=== PATIENT | female | born 1975 | race Caucasian/White ===

== ENCOUNTER 2024-03-25 21:20 | Observation (INO) ==
[2024-03-25 21:45] LABS: ABS Basophils 0.1 10^3/uL (0.0-0.1); ABS Eosinophils 0.1 10^3/uL (0.0-0.5); ABS Monocytes 0.5 10^3/uL (0.0-0.9); ABS Neutrophils 3.9 10^3/uL (1.5-7.6); ABS Nucleated RBC 0.01 10^3/ul; Hematocrit 42.6 % (35-45); Hemoglobin 14.3 g/dL (11.5-14.3); Lymphocyte % 29.8 %; Mean Corpuscular Hemoglobin 31.2 pg (27-33); Mean Corpuscular Hgb Conc 33.6 g/dL (31-36); Mean Corpuscular Volume 92.8 fL (80-97); Mean Platelet Volume 8.9 fL (7.5-11.2); Nucleated Red Blood Cells % 0.1 %/100WBC (0.0-0.8); Platelet Count 264 10^3/uL (150-450); Red Blood Count 4.59 10^6/uL (3.63-4.92); Red Cell Distribution Width 14.5 % (12-17); White Blood Count 6.6 10^3/uL (3.8-11.8)
[2024-03-25 22:27] LABS: INR 0.96 (0.85-1.14)
[2024-03-25 23:27] LABS: Creatinine, Serum 1.02 mg/dL (0.51-0.95); Potassium 4.2 mmol/L (3.5-5.0); eGFR CKD-EPI 68.7 (>60)
[2024-03-25 23:27] LABS: High Sensitivity Troponin 1 Hr 6 pg/mL (<15)
[2024-03-25 23:28] LABS: Albumin 4.1 g/dL (3.2-5.2); Albumin/Globulin Ratio 1.4 (1-3); Total Bilirubin 0.8 mg/dL (0.2-1.0); Total Protein 7.1 g/dL (6.4-8.9)
[2024-03-26] MEDS ORDERED: Nitroglycerin 0.3 mg TAB SL PRN (06:39)
[2024-03-26 07:17] LABS: ABS Basophils 0.1 10^3/uL (0.0-0.1); ABS Eosinophils 0.1 10^3/uL (0.0-0.5); ABS Lymphocytes 1.9 10^3/uL (1.0-4.8); ABS Monocytes 0.5 10^3/uL (0.0-0.9); ABS Neutrophils 3.2 10^3/uL (1.5-7.6); Eosinophil % 2.2 %; Hematocrit 39.4 % (35-45); Hemoglobin 13.2 g/dL (11.5-14.3); Lymphocyte % 33.4 %; Mean Corpuscular Hgb Conc 33.6 g/dL (31-36); Mean Corpuscular Volume 92.2 fL (80-97); Mean Platelet Volume 8.8 fL (7.5-11.2); Platelet Count 222 10^3/uL (150-450); Red Blood Count 4.27 10^6/uL (3.63-4.92); Red Cell Distribution Width 14.4 % (12-17); White Blood Count 5.8 10^3/uL (3.8-11.8)
[2024-03-26 07:22] LABS: Calcium 8.7 mg/dL (8.6-10.3); Creatinine, Serum 0.72 mg/dL (0.51-0.95); Potassium 4.4 mmol/L (3.5-5.0); eGFR CKD-EPI 104.4 (>60)
[2024-03-26 07:38] LABS: TSH Ultra Thyroid Stim Horm 1.72 mcIU/mL (0.34-5.60)
[2024-03-26] MEDS ORDERED: Aminophylline 25 MG/ML VIAL ONE (09:36)
[2024-03-26] MEDS ORDERED: Regadenoson 0.4 MG/5 ML SYRINGE ONE (09:37)
[2024-03-26] MEDS ORDERED: Nitro 2% OINT (Nitroglycerin) 1 INCH/PAK ONE (09:58)
[2024-03-26] MEDS: Aminophylline 25 MG/ML VIAL IV ONE (10:00)
[2024-03-26] MEDS: Nitro 2% OINT (Nitroglycerin) 1 INCH/PAK TOPICAL ONE (10:14)
[2024-03-26] MEDS ORDERED: fentaNYL 250 mcg/5 ml 50 MCG/ML 5 ml VIAL (250 MCG) ONE (12:08)
[2024-03-26] MEDS ORDERED: Midazolam 5 mg/5 ml VIAL 1 mg/ml 5 ml VIAL (5 mg) ONE ×2 (12:08→13:27)
[2024-03-26] MEDS: NS 0.9% 1000 ml BAG 1,000 ML IV SCH ×2 (12:28→16:26)
[2024-03-26] MEDS ORDERED: VERAPAMIL 2.5 MG/ML 2 ML VIAL ** 5 mg/2 ml ONE (13:27)
[2024-03-26] MEDS ORDERED: fentaNYL 100 mcg/2 ml 50 MCG/ML VIAL ONE ×2 (13:27→14:51)
[2024-03-26] MEDS ORDERED: nitroGLYCERIN DRIP 25,000 MCG/250 ML BTL ONE (13:29)
[2024-03-26] MEDS ORDERED: Lidocaine 1% MPF 5 ML VIAL ONE (13:29)
[2024-03-26] MEDS ORDERED: Heparin 2 UNITS/ML 1000 mls 2,000 ML IV ONE (13:29)
[2024-03-26] MEDS ORDERED: Iohexol 350 (CONTRAST) 100 ML PAK IV ONE ×2 (13:29→14:08)
[2024-03-26] MEDS ORDERED: Heparin 1,000 UNIT/ML 10 ml (10,000 UNITS) CATHLAB/DIALYSIS ONE (13:33)
[2024-03-26] MEDS ORDERED: Bivalirudin 250 MG VIAL ONE ×2 (14:03→14:04)
[2024-03-26] MEDS ORDERED: Heparin 2 UNITS/ML 1000 mls 1,000 ML IV ONE (14:08)
[2024-03-26] MEDS ORDERED: Ondansetron 4 mg VIAL 2 MG/ML 2 ml VIAL ONE (14:19)
[2024-03-26] MEDS: Iohexol 350 (CONTRAST) 500 ML MDV IV ONE (15:30)
[2024-03-26] MEDS: Sulfur Hexaflouride MICROSPHR 25 MG VIAL IV PRN (16:00)
[2024-03-26] MEDS: Furosemide 20 mg/2 ml IV VIAL IV ONE (16:26)
[2024-03-26] MEDS: Metoprolol Tartrate 5 mg VIAL 5 ml VIAL (1 mg/ml) IV ONE (16:26)
[2024-03-26] MEDS: Ondansetron 4 mg VIAL 2 MG/ML 2 ml VIAL ONE (18:23)
[2024-03-26] MEDS: Ondansetron 4 mg VIAL 2 MG/ML 2 ml VIAL IV PRN (18:23)
[2024-03-27 04:06] LABS: ABS Basophils 0.1 10^3/uL (0.0-0.1); ABS Eosinophils 0.1 10^3/uL (0.0-0.5); ABS Lymphocytes 1.5 10^3/uL (1.0-4.8); ABS Monocytes 0.5 10^3/uL (0.0-0.9); ABS Neutrophils 4.9 10^3/uL (1.5-7.6); Eosinophil % 1.8 %; Hematocrit 40.9 % (35-45); Hemoglobin 13.9 g/dL (11.5-14.3); Lymphocyte % 21.1 %; Mean Corpuscular Hemoglobin 31.1 pg (27-33); Mean Corpuscular Hgb Conc 34.1 g/dL (31-36); Mean Corpuscular Volume 91.4 fL (80-97); Mean Platelet Volume 8.6 fL (7.5-11.2); Platelet Count 221 10^3/uL (150-450); Red Blood Count 4.47 10^6/uL (3.63-4.92); Red Cell Distribution Width 14.1 % (12-17); White Blood Count 7.1 10^3/uL (3.8-11.8)
[2024-03-27 04:32] LABS: Creatinine, Serum 0.66 mg/dL (0.51-0.95); Magnesium 1.8 mg/dL (1.9-2.7); Potassium 3.6 mmol/L (3.5-5.0); eGFR CKD-EPI 109.5 (>60)
[2024-03-27] MEDS: Potassium Chlor 20 meq TAB.ER PO ONE ×2 (06:22→09:50)
[2024-03-27] MEDS: Magnesium Sulfate 2 gm BAG 2 GM/50 ML BAG IVPB ONE (06:23)
[2024-03-27] MEDS: Nicotine PATCH 21 MG/24 HR PATCH TRANSDERM SCH (09:24)
[2024-03-27 19:45] LABS: High Sensitivity Troponin 1 Hr 35 pg/mL (<15)
[2024-03-28 06:18] LABS: ABS Eosinophils 0.1 10^3/uL (0.0-0.5); ABS Lymphocytes 1.4 10^3/uL (1.0-4.8); ABS Monocytes 0.6 10^3/uL (0.0-0.9); ABS Neutrophils 4.3 10^3/uL (1.5-7.6); Eosinophil % 1.9 %; Hematocrit 42.6 % (35-45); Hemoglobin 14.6 g/dL (11.5-14.3); Lymphocyte % 21.6 %; Mean Corpuscular Hemoglobin 31.5 pg (27-33); Mean Corpuscular Hgb Conc 34.3 g/dL (31-36); Mean Corpuscular Volume 91.9 fL (80-97); Mean Platelet Volume 8.7 fL (7.5-11.2); Platelet Count 232 10^3/uL (150-450); Red Blood Count 4.64 10^6/uL (3.63-4.92); White Blood Count 6.5 10^3/uL (3.8-11.8)
[2024-03-28 06:45] LABS: Calcium 9.4 mg/dL (8.6-10.3); Creatinine, Serum 0.65 mg/dL (0.51-0.95); Magnesium 2.1 mg/dL (1.9-2.7); Phosphorus 3.5 mg/dL (2.5-5.0); Potassium 4.1 mmol/L (3.5-5.0); eGFR CKD-EPI 109.9 (>60)
[2024-03-28] MEDS: Influenza Vaccine *TRI* 2024-25* 0.5 ML SYRINGE IM ONE (08:57)
[2024-03-29] MEDS ORDERED: Naloxone 0.4 mg VIAL 0.4 mg/ml 1 ml VIAL IV PUSH PRN (08:02)
[2024-03-29] MEDS ORDERED: Flumazenil 0.5 mg/5 ml 0.1 MG/ML 5 ml VIAL IV PRN (08:02)
[2024-03-29] MEDS ORDERED: fentaNYL 100 mcg/2 ml 50 MCG/ML VIAL ONE ×2 (08:09→09:07)
[2024-03-29] MEDS ORDERED: Heparin 1,000 UNIT/ML 10 ml (10,000 UNITS) CATHLAB/DIALYSIS ONE (08:09)
[2024-03-29] MEDS ORDERED: Midazolam 5 mg/5 ml VIAL 1 mg/ml 5 ml VIAL (5 mg) ONE (08:09)
[2024-03-29] MEDS ORDERED: Heparin 2 UNITS/ML 1000 mls 2,000 ML IV ONE (08:10)
[2024-03-29] MEDS ORDERED: Lidocaine 1% MPF 5 ML VIAL ONE (08:10)
[2024-03-29] MEDS ORDERED: niCARdipine 0.1MG/ML IVPREMIX 20 MG/200 ML BAG IV ONE (08:10)
[2024-03-29] MEDS ORDERED: Iohexol 350 (CONTRAST) 200 ML MDV IV ONE (08:10)
[2024-03-29] MEDS ORDERED: nitroGLYCERIN DRIP 25,000 MCG/250 ML BTL ONE (08:10)
[2024-03-29] MEDS ORDERED: Heparin 2 UNITS/ML 1000 mls 1,000 ML IV ONE (08:26)
[2024-03-29] MEDS ORDERED: Eptifibatide IV (Load dose) 2 MG/ML 10 ml VIAL ONE (09:06)
[2024-03-29] MEDS ORDERED: Atropine 0.1 MG/ML 10 ml SYR (1 mg) ONE (09:11)
[2024-03-29] MEDS: Midazolam 10 mg/10 ml VIAL 1 mg/ml 10 ml VIAL (10 mg) IV SLOW PU ONE (10:41)
[2024-03-29] MEDS: fentaNYL 100 mcg/2 ml 50 MCG/ML VIAL IV SLOW PU ONE (10:41)
[2024-03-29] MEDS: NS 0.9% 1000 ml BAG 1,000 ML IV SCH (11:34)
[2024-03-29] MEDS: Famotidine IV 10 MG/ML 2 ml VIAL (20 mg) IV SLOW PU SCH (23:06)
[2024-03-29] MEDS: diPHENhydraMINE CREAM 2%(NF) 28 gm TUBE TOPICAL SCH (23:10)
[2024-03-29] MEDS: Nicotine PATCH 21 MG/24 HR PATCH TRANSDERM SCH (23:18)
[2024-03-30 04:50] LABS: ABS Basophils 0.1 10^3/uL (0.0-0.1); ABS Eosinophils 0.1 10^3/uL (0.0-0.5); ABS Lymphocytes 1.5 10^3/uL (1.0-4.8); ABS Monocytes 0.5 10^3/uL (0.0-0.9); ABS Neutrophils 4.7 10^3/uL (1.5-7.6); Eosinophil % 1.7 %; Hematocrit 39.8 % (35-45); Hemoglobin 13.6 g/dL (11.5-14.3); Lymphocyte % 21.8 %; Mean Corpuscular Hemoglobin 31.3 pg (27-33); Mean Corpuscular Hgb Conc 34.1 g/dL (31-36); Mean Corpuscular Volume 91.8 fL (80-97); Mean Platelet Volume 8.7 fL (7.5-11.2); Platelet Count 222 10^3/uL (150-450); Red Blood Count 4.33 10^6/uL (3.63-4.92); White Blood Count 6.9 10^3/uL (3.8-11.8)
[2024-03-30 05:24] LABS: Creatinine, Serum 0.62 mg/dL (0.51-0.95); Magnesium 1.8 mg/dL (1.9-2.7); Potassium 4.1 mmol/L (3.5-5.0); eGFR CKD-EPI 111.2 (>60)
[2024-03-30 12:04] VITALS: BP 133/82
[2024-04-01 12:47] LABS: 5-Hydroxyindoleacetic Acid, U 2.6 mg/24 h (<=7.5)
[2024-04-02 01:11] LABS: Urine Collection Duration 24 h; Urine Total Metanephrines 470 mcg/24 h; Urine Volume 2000 mL
== END 2024-03-30 12:39 | disposition home or self-care (01) ==
LOC: ED 21:20 → EDHOLD 21:20 → SUATTDRO 03-26 03:36 → MEDTELE 03-26 11:42 → ICU 03-26 15:39 → MEDTELE 03-27 10:37 → ICU 03-29 09:58 → UNDODISIN 03-30 12:39 → ICU 03-31 11:23
PROVIDERS: ADMIT Internal Medicine; ATTEND Student in an Organized Health Care Education/Training Program

== ENCOUNTER 2024-03-30 18:14 | Inpatient (IN) ==
[2024-03-30 18:49] LABS: ABS Basophils 0.1 10^3/uL (0.0-0.1); ABS Eosinophils 0.1 10^3/uL (0.0-0.5); ABS Lymphocytes 1.4 10^3/uL (1.0-4.8); ABS Monocytes 0.5 10^3/uL (0.0-0.9); ABS Neutrophils 6.4 10^3/uL (1.5-7.6); Eosinophil % 0.9 %; Hematocrit 42.2 % (35-45); Hemoglobin 14.5 g/dL (11.5-14.3); Lymphocyte % 16.7 %; Mean Corpuscular Hemoglobin 31.5 pg (27-33); Mean Corpuscular Hgb Conc 34.5 g/dL (31-36); Mean Corpuscular Volume 91.3 fL (80-97); Platelet Count 227 10^3/uL (150-450); Red Blood Count 4.63 10^6/uL (3.63-4.92); Red Cell Distribution Width 14.1 % (12-17); White Blood Count 8.5 10^3/uL (3.8-11.8)
[2024-03-30 18:57] LABS: INR 1.15 (0.85-1.14)
[2024-03-30 19:34] LABS: Albumin 4.2 g/dL (3.2-5.2); Albumin/Globulin Ratio 1.4 (1-3); Creatinine, Serum 0.89 mg/dL (0.51-0.95); Potassium 4.1 mmol/L (3.5-5.0); Total Bilirubin 1.5 mg/dL (0.2-1.0); Total Protein 7.2 g/dL (6.4-8.9); eGFR CKD-EPI 80.9 (>60)
[2024-03-30] MEDS: Iohexol 350 (CONTRAST) 500 ML MDV IV ONE (19:44)
[2024-03-30 22:06] LABS: High Sensitivity Troponin 1 Hr 171 pg/mL (<15)
[2024-03-31] MEDS: Nicotine PATCH 21 MG/24 HR PATCH TRANSDERM SCH (02:36)
[2024-03-31] MEDS: diPHENhydraMINE CREAM 2%(NF) 28 gm TUBE TOPICAL SCH (02:37)
[2024-03-31 08:03] LABS: ABS Basophils 0.1 10^3/uL (0.0-0.1); ABS Eosinophils 0.1 10^3/uL (0.0-0.5); ABS Lymphocytes 1.2 10^3/uL (1.0-4.8); ABS Monocytes 0.7 10^3/uL (0.0-0.9); ABS Neutrophils 5.4 10^3/uL (1.5-7.6); Eosinophil % 1.7 %; Hematocrit 40.1 % (35-45); Hemoglobin 13.6 g/dL (11.5-14.3); Lymphocyte % 15.9 %; Mean Corpuscular Hemoglobin 31.2 pg (27-33); Mean Corpuscular Hgb Conc 33.9 g/dL (31-36); Mean Corpuscular Volume 91.8 fL (80-97); Platelet Count 206 10^3/uL (150-450); Red Blood Count 4.37 10^6/uL (3.63-4.92); Red Cell Distribution Width 14.2 % (12-17); White Blood Count 7.5 10^3/uL (3.8-11.8)
[2024-03-31 09:02] LABS: Albumin/Globulin Ratio 1.5 (1-3); Calcium 9.1 mg/dL (8.6-10.3); Creatinine, Serum 0.65 mg/dL (0.51-0.95); Direct Bilirubin 0.1 mg/dL (0.03-0.18); Globulin 2.7 g/dL (2-4); Indirect Bilirubin 1.5 mg/dL (0.3-1.0); Magnesium 1.9 mg/dL (1.9-2.7); Total Bilirubin 1.6 mg/dL (0.2-1.0); Total Protein 6.7 g/dL (6.4-8.9); eGFR CKD-EPI 109.9 (>60)
[2024-03-31 11:24] LABS: High Sensitivity Troponin 1 Hr 135 pg/mL (<15)
[2024-03-31] MEDS: Ondansetron ODT 4 mg TAB 4 MG TAB SL PRN (12:41)
[2024-03-31 14:31] LABS: High Sensitivity Troponin 1 Hr 127 pg/mL (<15)
[2024-03-31] MEDS ORDERED: Enoxaparin 40 MG/0.4 ML SYR SUBCUT SCH (21:00)
[2024-03-31] MEDS: Al Hydrox/Mg Hydrox/Simet LIQ 30 ML UDC PO PRN (21:31)
[2024-03-31] MEDS: CMC:Prasugrel 10 mg TAB (NF) PO ONE (21:33)
[2024-04-01] MEDS: Prasugrel 5 MG TAB (NF) PO SCH (10:20)
[2024-04-02 11:40] LABS: Calcium 9.5 mg/dL (8.6-10.3); Creatinine, Serum 0.73 mg/dL (0.51-0.95); Magnesium 1.9 mg/dL (1.9-2.7); Potassium 4.3 mmol/L (3.5-5.0); eGFR CKD-EPI 102.6 (>60)
[2024-04-02 17:58] VITALS: BP 120/76
== END 2024-04-02 18:37 | disposition home or self-care (01) | DRG 201 ==
LOC: ED 18:14 → EDHOLD 18:14 → SUATTDRO 23:20 → MEDTELE 03-31 03:51
PROVIDERS: ADMIT Student in an Organized Health Care Education/Training Program; ATTEND Internal Medicine